=== PATIENT | female | born 1940 | race Caucasian/White ===

== ENCOUNTER → 2016-04-22 | Outpatient (CLI) | payer OTHER, MEDICARE | LOC: BMCIMAGING 08:50 | DX: Z12.31 Encounter for screening mammogram for malignant neoplasm of breast (principal) | CPT/HCPCS: G0202 ==

== ENCOUNTER → 2017-04-23 | Outpatient (CLI) | payer OTHER, MEDICARE | LOC: BMCIMAGING 12:59 | PROVIDERS: ATTEND Internal Medicine | DX: Z12.31 Encounter for screening mammogram for malignant neoplasm of breast (principal) ==

== ENCOUNTER → 2017-05-26 | Outpatient (CLI) | payer OTHER, MEDICARE | LOC: BMCIMAGING 11:08 | PROVIDERS: ATTEND Internal Medicine | DX: Z13.820 Encounter for screening for osteoporosis (principal); Z78.0 Asymptomatic menopausal state ==

== ENCOUNTER → 2018-02-09 | Outpatient (CLI) | payer OTHER, MEDICARE | LOC: FIMAGING 08:56 | PROVIDERS: ATTEND Internal Medicine | DX: N64.4 Mastodynia (principal) ==